=== PATIENT | female | born 1990 | race Caucasian/White ===

== ENCOUNTER 2023-06-27 08:00 | Outpatient (CLI) | payer OTHER ==
[2023-06-27 16:46] LABS: BILIRUBIN,URINE NEGATIVE (NEGATIVE); GLUCOSE, URINE (UA) NEGATIVE (NEGATIVE); KETONES,URINE (UA) NEGATIVE (NEGATIVE); LEUKOCYTE ESTERASE, URINE NEGATIVE (NEGATIVE); NITRITE,URINE NEGATIVE (NEGATIVE); OCCULT BLOOD,URINE NEGATIVE (NEGATIVE); PROTEIN,URINE NEGATIVE (NEGATIVE); UROBILINOGEN,URINE 0.2 (NORMAL) E.U./dL (NORMAL)
[2023-06-27 17:10] LABS: BACTERIA,URINE Rare /HPF (None Seen); CLARITY,URINE CLEAR (CLEAR); RBC,URINE None Seen /HPF (0-5); SQUAMOUS EPITHELIAL CELL,UR RARE Squamous (<= Few); WBC,URINE 0-3 /HPF (0-5)
== END 2023-06-27 23:59 | disposition home or self-care (01) ==
LOC: LAB.WC 08:00
PROVIDERS: ATTEND Obstetrics & Gynecology
DX: Z34.80 Encounter for supervision of other normal pregnancy, unspecified trimester (principal)
CPT/HCPCS: 81001; 87086

== ENCOUNTER 2023-07-09 12:35 | Outpatient (CLI) | payer MEDICAID, OTHER ==
[2023-07-09 14:12] LABS: BASOPHILS % (AUTO) 0.4 %; EOSINOPHILS # (AUTO) 0.1 10^3/uL (0.0-0.7); EOSINOPHILS % (AUTO) 0.9 %; HCT - HEMATOCRIT 38.7 % (37.0-47.0); HGB - HEMOGLOBIN 13.2 g/dL (12.0-16.0); LYMPHOCYTES # (AUTO) 2.1 10^3/uL (1.5-3.5); LYMPHOCYTES % (AUTO) 22.3 %; MEAN CORPUSCULAR HEMOGLOBIN 30.3 pg (27.0-31.0); MEAN CORPUSCULAR HGB CONC 34.1 g/dL (32.0-36.0); MEAN PLATELET VOLUME 10.1 fL (7.9-10.8); MONOCYTES # (AUTO) 0.6 10^3/uL (0.0-1.0); MONOCYTES % (AUTO) 6.4 %; NEUTROPHILS # (AUTO) 6.7 10^3/uL (1.5-6.6); NEUTROPHILS % (AUTO) 69.7 %; PLT - PLATELET COUNT 359 10^3/uL (130-450); RED BLOOD COUNT 4.35 10^6/uL (4.20-5.40); RED CELL DISTRIBUTION WIDTH 13.2 % (12.0-15.0); WHITE BLOOD COUNT 9.6 x10^3/uL (4.8-10.8)
[2023-07-09 14:27] LABS: ALBUMIN 4.2 g/dL (3.2-5.5); ALBUMIN/GLOBULIN RATIO 1.8 (1.0-2.2); ALKALINE PHOSPHATASE 58 IU/L (42-121); ALT ALANINE AMINOTRANSFERASE 9 IU/L (10-60); AST ASPARTATE AMINOTRANSFERASE 10 IU/L (10-42); BILIRUBIN,TOTAL 0.4 mg/dL (0.2-1.0); BUN - BLOOD UREA NITROGEN 8 mg/dL (6-20); CALCIUM 9.5 mg/dL (8.5-10.3); CARBON DIOXIDE - CO2 22 mmol/L (21-32); CHLORIDE 104 mmol/L (101-111); CHOL/HDL RATIO 3.1 (<4.4); CHOLESTEROL 178 mg/dL; CREATININE 0.6 mg/dL (0.6-1.3); GFR - MDRD 116 (>89); GLUCOSE 97 mg/dL (74-104); HDL CHOLESTEROL 58 mg/dL; LDL CHOLESTEROL,CALCULATED 88 mg/dL; LDL/HDL RATIO 1.5 (<4.4); POTASSIUM 3.5 mmol/L (3.5-4.5); SODIUM 133 mmol/L (135-145); TOTAL PROTEIN 6.6 g/dL (6.4-8.9); TRIGLYCERIDES 160 mg/dL (48-352); VLDL CHOLESTEROL 32 mg/dL
[2023-07-09 14:41] LABS: THYROID STIMULATING HORMONE 1.42 uIU/mL (0.34-5.60)
[2023-07-09 14:52] LABS: ESTIMATED AVERAGE GLUCOSE 82 mg/dL (70-100); HEMOGLOBIN A1c% 4.5 % (4.27-6.07)
--- NOTE | 2023-07-09 21:02 | Ultrasound Report ---
PROCEDURE: OB 1st Trimester w/TV INDICATIONS: POSITIVE TEST OUTSIDE/PRIOR DATING DATA: Last menstrual period (LMP): 04/16/2023. LMP-based estimated date of delivery (YO): 01/21/2024. First dating scan (date and location): 07/09/2023. Estimated date of delivery (YO) from first dating scan: 01/22/2024. TECHNIQUE: Real-time scanning was performed of the fetus and maternal pelvic organs, with image documentation. Endovaginal scanning was also performed to better visualize the fetus and maternal ovaries. COMPARISON: None. FINDINGS: Intrauterine gestational sac present. Embryo: [place]-rump length measuring 5.23 cm, gestational age 11 weeks 6 days Heart rate: 162 bpm. Other: No perigestational fluid collection. Measurement variability in dating: +/- 4 weeks by LMP, +/- 7 days by mean sac diameter (use before 6 weeks gestation if crown-rump length not able to be measured), +/- 5 days by crown-rump length (6-12 weeks gestation). Maternal organs: Left oval paraovarian hypoechoic cyst measuring 1.4 x 1.3 x 1.2 cm. No internal vas cularity. Right ovarian anechoic cyst measuring 2.5 x 2.5 x 2.5 cm. IMPRESSION: 1. Lloyd living intrauterine at 11 weeks 6 days based on today's crown-rump length. 2. No perigestational hemorrhage. 3. Small left paraovarian hypoechoic cyst measuring 1.4 cm. Recommend attention on follow-up scan. Reviewed by: Kenton Petit MD on 07/09/2023 9:01 PM PST Approved by: Kenton Petit MD on 07/09/2023 9:01 PM PST Station ID: [id number]
[2023-07-10 04:09] LABS: HBsAG SCREEN Negative (Negative)
[2023-07-10 05:13] LABS: RPR Non Reactive (Non Reactive)
[2023-07-10 08:10] LABS: VARICELLA-ZOSTER AB IGG <135 index (Immune >165)
[2023-07-11 03:10] LABS: HCV AB Non Reactive (Non Reactive); HIV SCREEN 4TH GENERATION Non Reactive (Non Reactive)
== END 2023-07-09 12:36 | disposition home or self-care (01) ==
LOC: DI 12:35
PROVIDERS: ATTEND Obstetrics & Gynecology
DX: O26.01 Excessive weight gain in pregnancy, first trimester (principal); O34.81 Maternal care for other abnormalities of pelvic organs, first trimester; N83.202 Unspecified ovarian cyst, left side; Z36.89 Encounter for other specified antenatal screening; Z87.59 Personal history of other complications of pregnancy, childbirth and the puerperium; Z3A.11 11 weeks gestation of pregnancy
CPT/HCPCS: 36415; 80053; 80061; 83036; 83721; 84443; 85025; 86592; 86762; 86787; 86803; 86850; 86900; 86901; 87340; 87389

== ENCOUNTER 2023-07-18 08:00 | Outpatient (CLI) | payer OTHER, MEDICAID ==
[2023-07-18 18:32] LABS: CHLAMYDIA TRACHOMATIS DNA NEGATIVE (NEGATIVE); NEISSERIA GONORRHOEAE DNA NEGATIVE (NEGATIVE); TRICHOMONAS VAGINALIS DNA NEGATIVE (NEGATIVE)
== END 2023-07-18 23:59 | disposition home or self-care (01) ==
LOC: LAB.WC 08:00
PROVIDERS: ATTEND Nurse Practitioner
DX: Z11.3 Encounter for screening for infections with a predominantly sexual mode of transmission (principal)
CPT/HCPCS: 87491; 87591; 87661

== ENCOUNTER 2023-09-04 08:56 | Outpatient (CLI) | payer MEDICAID ==
--- NOTE | 2023-09-04 13:37 | Ultrasound Report ---
PROCEDURE: OB Anatomy Scan INDICATIONS: SUPERVISION OF OUTSIDE/PRIOR DATING DATA: Last menstrual period (LMP): 04/16/2023. LMP-based estimated date of delivery (YO): 01/21/2024. First dating scan (date and location): 07/09/2023. Estimated date of delivery (YO) from first dating scan: 01/22/2024. The below data below was generated using the ultrasound YO of 01/22/2024 TECHNIQUE: Real-time scanning was performed of the fetus, with image documentation and biometric measurements. Endovaginal scanning: Not performed. COMPARISON: OB ultrasound 07/09/2023 FINDINGS: General: A single living intrauterine gestation is present. Presentation: Variable Placenta: Placental position is posterior, without previa. Amniotic fluid index: 13.1 cm, within normal limits for gestational age. heart rate: 145 beats per minute. Maternal cervical canal: Closed. biometrics: Biparietal diameter: 4.6 cm, 20 weeks 0 days, 43rd percentile Head circumference: 17.1 cm, 19 weeks 5 days, 22nd percentile Abdominal circumference: 15.0 cm, 20 weeks 2 days, 48th percentile Femur length: 3.3 cm, 20 weeks 3 days, 53rd percentile Estimated gestational age from initial scan: 20 weeks 1 day Composite gestational age from present scan: 19 weeks 6 days Estimated weight and percentile: 342 g, 52nd percentile Measurement variability in biometric dating: +/- 10 days from 12-20 weeks gestation, +/- 2 weeks from 20-30 weeks gestation, +/- 3 weeks at 30 weeks gestation or later. Anatomic survey: Neuro: Ventricles are normal at less than 10 mm. Cisterna magna is normal at 3-11 mm. Cerebellum i s normal in size and morphology. Nuchal skin fold: Normal at less than 6 mm between 14 and 20 weeks gestational age. Face: Nose and lips, facial profile are normal. Spine: No evidence for spina bifida. Heart: 4-chambered heart is present, with normal ventricular outflow tracts. Diaphragm: Diaphragm is intact. Stomach: Left-sided stomach is present. Kidneys: No hydronephrosis. Normal is less than 5 mm in 2nd trimester, less than 7 mm in 3rd trimester. Cord: 3 vessel cord has orthotopic insertion. Bladder: Normal in size. Extremities: Extremities are normal visualized. IMPRESSION: 1.Single live intrauterine with appropriate interval growth. 2. extremities not evaluated. 3. anatomic survey is otherwise within normal limits. Reviewed by: Richard Raza MD on 09/04/2023 1:36 PM PDT Approved by: Richard Raza MD on 09/04/2023 1:36 PM PDT Station ID: [id number]
== END 2023-09-04 08:57 | disposition home or self-care (01) ==
LOC: DI 08:56
PROVIDERS: ATTEND Obstetrics & Gynecology
DX: O99.212 Obesity complicating pregnancy, second trimester (principal); Z36.89 Encounter for other specified antenatal screening; Z3A.19 19 weeks gestation of pregnancy
CPT/HCPCS: 82950